=== PATIENT | female | born 1960 | race Caucasian/White ===

== ENCOUNTER 2017-02-26 17:10 | Inpatient (IN) | payer BC, OTHER ==
[~2017-02-26] VITALS: Ht 160 cm; Wt 102.4 kg
[~2017-02-26 17:10] MED LIST: CIPR-255 PO
[2017-02-26] MEDS ORDERED: MoRPHine SULFATE 4 MG/ML 1 ML CARP\\VIAL IV STA (17:33)
[2017-02-26] MEDS ORDERED: ONDANSETRON INJ 2 MG/ML 2 ML VIAL IV STA (17:33)
[2017-02-26] MEDS ORDERED: SODIUM CHLORIDE 0.9% 1000ML 1,000 ML IV SCH (17:33)
[2017-02-26] MEDS ORDERED: ASPI325T39 PO (17:36)
--- NOTE | 2017-02-26 17:40 | EMERGENCY ROOM VISIT NOTE ---
History First contact with patient: 17:19 Chief Complaint: CARDIAC ASSESSMENT Stated Complaint: EYE PROBLEMS, CHEST PAIN Nursing Triage Summary: last monday patient was stressed and c/o blurry vision and thoughts were not making sense. patient states symptoms have not resolved. patient states last night around 2129 pt c/o chest pain"tight" that radiates to back. pain resolved but then this AM c/o chest pain. patient took 1 pill of Grace aspirin 1 hr ago and symptoms have subsided slightly. chest pain 4/10 at this time. pt denies SOB. pt continues to have blurry vision and feels like she "cannot get her thoughts together." History of Present Illness The patient is a 56 year old female who presents to the Emergency Room via private vehicle accompanied by family with complaints of "eye problems, chest pain". The patient states that 2 weeks ago, she began with increased thirst and urination. She states that she thought she had a UTI, and the niece infection therefore began treating this by herself. She states that last Monday , week ago she lost vision in both eyes, noting that it was blurred like. This has persisted. She now needs to wear glasses for things that she used to be able to visually see without glasses. She states that last night she began with substernal chest pain, and breathing very fast. She points to the middle of her chest as a location of pain that she rates as a 4/10. The chest pain is dull in nature. She also took aspirin 1 hour prior to arrival. She denies any medical problems. She feels as though she has trouble concentrating, and has to search for words. Review of Systems A complete 10-point Review of Systems was discussed with the patient, with pertinent positives and negatives listed in the History of Present Illness. All remaining Review of Systems questions can be considered negative unless otherwise specified. Past Medical/Surgical History Medical Problems: (1) Kidney stones Family History Heart disease Kidney disease Social History Smoking Status: Never Smoker Marital Status: Housing Status: lives with family Current/Historical Medications Scheduled Aspirin (Aspirin Ec), 325 MG PO UD Physical Exam Vital Signs Date Time Temp Pulse Resp B/P (MAP) Pulse Ox O2 Delivery O2 Flow Rate FiO2 02/26/17 20:26 74 18 174/101 96 Room Air 02/26/17 18:43 73 16 161/83 95 Room Air 02/26/17 18:23 81 16 169/88 94 Room Air 02/26/17 18:22 94 Room Air 02/26/17 17:58 82 02/26/17 17:18 97 Room Air 02/26/17 17:13 36.7 93 20 171/83 94 Room Air Physical Exam VITAL SIGNS - Vital signs and nursing notes were reviewed. Patient is afebrile , hypertensive at 171/83, nontoxic tachycardic and is saturating on room air 94% . GENERAL -56-year-old female appearing her stated age who is in no acute distress. Communicates well with provider and answers questions appropriately. SKIN - Without rashes. No petechial rash. HEAD - NC/AT. EYES - PERRL with EOMI bilaterally. Sclera anicteric. Palpebral conjunctiva pink and moist with no injection noted. Funduscopic exam reveals no abnormality. EARS - No deformities of external structures noted on gross examination bilaterally. NOSE - Midline and without cyanosis. No epistaxis or purulent drainage noted. Septum midline without deviation or septal hematoma noted. MOUTH/OROPHARYNX - Without perioral cyanosis. Buccal mucosa pink and moist and without leukoplakia. Tongue midline with equal elevation of palate bilaterally. No tonsillar hypertrophy, erythema, or exudates noted. Fair dentition noted. NECK - Neck with FROM. Supple to palpation. No lymphadenopathy noted. No nuchal rigidity. LUNGS - Chest wall symmetric without accessory muscle use, intercostals retractions, or central cyanosis. Normal vesicular breath sounds CTA B/L. No wheezes, rales, or rhonchi appreciated. CARDIAC - RRR with S1/S2. No murmur, rubs, or gallops appreciated. ABDOMEN - Abdominal contour without pulsations or visible masses. BS normoactive all four quadrants. No tenderness, palpable masses, hepatosplenomegaly, or ascites noted. EXTREMITIES - No clubbing or peripheral cyanosis. No pretibial edema present. +5 /5 strength noted in UE/LE bilaterally. NEUROLOGIC - Cranial nerves II through XII grossly intact. Patellar reflexes +2/ 4. PSYCH - A&Ox3 and cooperates fully with examiner. Pt is very pleasant and interacts well with examiner. Medical Decision & Procedures ER Provider Diagnostic Interpretation: CHEST ONE VIEW PORTABLE CLINICAL HISTORY: Chest pain dyspnea COMPARISON STUDY: 05/23/2015 FINDINGS: The bones soft tissues and hemidiaphragms are normal. The cardiomediastinal silhouette is normal. The lungs are clear. The pulmonary vasculature is normal. IMPRESSION: Negative chest. The above report was generated using voice recognition software. It may contain grammatical, syntax or spelling errors. Electronically signed by: Cory Ramsey M.D. 02/26/2017 6:05 PM Dictated Date/Time: 02/26/2017 6:05 PM Laboratory Results 02/26/17 17:55 Red Blood Count 5.44, Mean Corpuscular Volume 82.2, Mean Corpuscular Hemoglobin 28.5, Mean Corpuscular Hemoglobin Concent 34.7, Mean Platelet Volume 10.0, Neutrophils (%) (Auto) 64.4, Lymphocytes (%) (Auto) 23.9, Monocytes (%) (Auto) 9.2, Eosinophils (%) (Auto) 1.9, Basophils (%) (Auto) 0.4, Neutrophils # (Auto) 3.65, Lymphocytes # (Auto) 1.35, Monocytes # (Auto) 0.52, Eosinophils # (Auto) 0.11, Basophils # (Auto) 0.02 02/26/17 17:55 Test 02/26/17 17:24 02/26/17 17:45 02/26/17 17:55 02/26/17 18:06 Bedside Glucose 386 mg/dl (70-90) Bedside Prothrombin Time INR 1.0 (0.9-1.1) White Blood Count 5.66 K/uL (4.8-10.8) Red Blood Count 5.44 M/uL (4.2-5.4) Hemoglobin 15.5 g/dL (12.0-16.0) Hematocrit 44.7 % (37-47) Mean Corpuscular Volume 82.2 fL (80-100) Mean Corpuscular Hemoglobin 28.5 pg (25-34) Mean Corpuscular Hemoglobin Concent 34.7 g/dl (32-36) Platelet Count 215 K/uL (130-400) Mean Platelet Volume 10.0 fL (7.4-10.4) Neutrophils (%) (Auto) 64.4 % Lymphocytes (%) (Auto) 23.9 % Monocytes (%) (Auto) 9.2 % Eosinophils (%) (Auto) 1.9 % Basophils (%) (Auto) 0.4 % Neutrophils # (Auto) 3.65 K/uL (1.4-6.5) Lymphocytes # (Auto) 1.35 K/uL (1.2-3.4) Monocytes # (Auto) 0.52 K/uL (0.11-0.59) Eosinophils # (Auto) 0.11 K/uL (0-0.5) Basophils # (Auto) 0.02 K/uL (0-0.2) RDW Standard Deviation 40.6 fL (36.4-46.3) RDW Coefficient of Variation 13.6 % (11.5-14.5) Immature Granulocyte % (Auto) 0.2 % Immature Granulocyte # (Auto) 0.01 K/uL (0.00-0.02) Prothrombin Time 10.3 SECONDS (9.0-12.0) Prothromb Time International Ratio 1.0 (0.9-1.1) Activated Partial Thromboplast Time 27.2 SECONDS (21.0-31.0) Partial Thromboplastin Ratio 1.0 Anion Gap 14.0 mmol/L (3-11) Est Creatinine Clear Calc Drug Dose 73.1 ml/min Estimated GFR () 75.1 Estimated GFR (Non- 64.8 BUN/Creatinine Ratio 17.9 (10-20) Calcium Level 8.8 mg/dl (8.5-10.1) Total Creatine Kinase 55 U/L (26-192) Creatine Kinase MB < 0.5 ng/ml (0.5-3.6) Creatine Kinase MB Ratio (0-3.0) Beta-Hydroxybutyric Acid 12.99 mg/dL (0.2-2.81) Bedside Troponin I < 0.030 ng/ml (0-0.045) Test 02/26/17 19:03 Urine Color YELLOW Urine Appearance CLEAR (CLEAR) Urine pH 5.0 (4.5-7.5) Urine Specific [place] 1.045 (1.000-1.030) Urine Protein NEG (NEG) Urine Glucose (UA) 3+ (NEG) Urine Ketones 3+ (NEG) Urine Occult Blood NEG (NEG) Urine Nitrite NEG (NEG) Urine Bilirubin NEG (NEG) Urine Urobilinogen NEG (NEG) Urine Leukocyte Esterase TRACE (NEG) Urine WBC (Auto) >30 /hpf (0-5) Urine RBC (Auto) 0-4 /hpf (0-4) Urine Hyaline Casts (Auto) 1-5 /lpf (0-5) Urine Epithelial Cells (Auto) 20-30 /lpf (0-5) Urine Bacteria (Auto) 1+ (NEG) Urine Yeast (Auto) PRESENT (NONE PRSENT) Medications Administered Medications (Trade) Dose Ordered Sig/Shakira Route Start Time Stop Time Status Last Admin Dose Admin Sodium Chloride 1,000 ml @ 50 mls/hr Q20H IV 02/26/17 17:33 03/28/17 17:32 02/26/17 18:11 50 MLS/HR Morphine Sulfate (MoRPHine SULFATE INJ) 4 mg NOW STAT IV 02/26/17 17:33 02/26/17 17:36 DC 02/26/17 18:10 4 MG Ondansetron HCl (Zofran Inj) 4 mg NOW STAT IV 02/26/17 17:33 02/26/17 17:36 DC 02/26/17 18:10 4 MG Medical Decision Patient was seen and evaluated as above. She presents to us today with eye problems, chest pain and polydipsia a, polyuria and concern over a yeast infection. Upon entrance, her EKG reveals normal sinus rhythm, rate of 85 bpm. There is a nonspecific T-wave abnormality, and a prolonged QT. This was compared to EKG of 05/23/2015 and no significant change was found. CBC reveals no leukocytosis. Her blood cell count slightly high at 5.44. Coag studies unremarkable. CMP reveals anion gap 14, point care glucose high at 386, beta hydroxy which are elevated at 12.99. Troponin negative. Urine is positive for ketones, leukocyte esterase, white blood cells, 2030 epithelial cells, and 1+ urinary bacteria. Urine cultures pending. Yeast is also present. Chest x-ray normal. CT of the head is unremarkable. Because the patient's symptoms of chest pain, new onset hyperglycemia, and vision change and do believe that inpatient management is warranted. The case was discussed with my attending. Patient will be made for further evaluation and management. The patient's vision change has been greater than one week, therefore TPA is contraindicated. In evaluation treatment this patient following differential diagnoses entertained: Hyperglycemia, diabetes, TIA, CVA, PE, among others. Impression Primary Impression: Chest pain Additional Impressions: Hyperglycemia Prolonged Q-T interval on ECG Polydipsia Polyuria Departure Information Condition FAIR Referrals No Doctor, Assigned (PCP) Patient Instructions My [facility] Problem Qualifiers
--- NOTE | 2017-02-26 18:06 | DIAGNOSTIC IMAGING REPORT ---
CHEST ONE VIEW PORTABLE CLINICAL HISTORY: Chest pain dyspnea COMPARISON STUDY: 05/23/2015 FINDINGS: The bones soft tissues and hemidiaphragms are normal. The cardiomediastinal silhouette is normal. The lungs are clear. The pulmonary vasculature is normal. IMPRESSION: Negative chest. The above report was generated using voice recognition software. It may contain grammatical, syntax or spelling errors. Electronically signed by: Cory Ramsey M.D. 02/26/2017 6:05 PM Dictated Date/Time: 02/26/2017 6:05 PM
[2017-02-26 18:10] LABS: BASO % 0.4 %; BASO ABS # 0.02 K/uL (0-0.2); COMPLETE YES; EOS % 1.9 %; HEMATOCRIT 44.7 % (37-47); IG% 0.2 %; LYMPH % 23.9 %; LYMPH ABS # 1.35 K/uL (1.2-3.4); MEAN CELL VOLUME 82.2 fL (80-100); MEAN CORPUSCULAR HEMOGLOBIN 28.5 pg (25-34); MEAN CORPUSCULAR HGB CONC 34.7 g/dl (32-36); MONO % 9.2 %; NEUT % 64.4 %; PLATELET COUNT 215 K/uL (130-400); RED BLOOD COUNT 5.44 M/uL (4.2-5.4); WHITE BLOOD COUNT 5.66 K/uL (4.8-10.8)
[2017-02-26 18:24] LABS: PROTHROMBIN TIME (PATIENT) 10.3 SECONDS (9.0-12.0)
--- NOTE | 2017-02-26 18:41 | DIAGNOSTIC IMAGING REPORT ---
HEAD WITHOUT CONTRAST (CT) CT DOSE: 537.48 mGy.cm HISTORY: Mental status change Stroke TECHNIQUE: Multiaxial CT images of the head were performed without the use of intravenous contrast. A dose lowering technique was utilized adhering to the principles of ALARA. Comparison: None. Findings: The paranasal sinuses and mastoid air cells are clear. The calvarium and skull base are intact. The ventricles and sulci are within normal limits. There is no mass, hematoma, midline shift, or acute infarct. Impression: No acute intracranial abnormality. The above report was generated using voice recognition software. It may contain grammatical, syntax or spelling errors. Electronically signed by: Cory Ramsey M.D. 02/26/2017 6:39 PM Dictated Date/Time: 02/26/2017 6:39 PM
[2017-02-26 18:48] LABS: BETA-HYDROXYBUTYRATE 12.99 mg/dL (0.2-2.81); BLOOD UREA NITROGEN 17 mg/dl (7-18); BUN/CREATININE RATIO 17.9 (10-20); CALCIUM 8.8 mg/dl (8.5-10.1); CARBON DIOXIDE 24 mmol/L (21-32); CHLORIDE 98 mmol/L (98-107); CREATININE 0.97 mg/dl (0.60-1.20); GLUCOSE 383 mg/dl (70-99)
[2017-02-26 19:26] LABS: SODIUM 136 mmol/L (136-145)
[2017-02-26 19:40] LABS: URINE APPEARANCE CLEAR (CLEAR); URINE BILIRUBIN NEG (NEG); URINE COLOR YELLOW; URINE EPITHELIAL CELL AUTO 20-30 /lpf (0-5); URINE NITRITE NEG (NEG); URINE SPECIFIC GRAVITY 1.045 (1.000-1.030); UROBILINOGEN NEG (NEG)
[2017-02-26 19:52] LABS: MANUAL MICROSCOPIC REQUIRED? NO; REVIEW REQ? YES
[2017-02-26 19:57] LABS: ZZUR CULT IF INDIC CLEAN CATCH YES
[2017-02-26] MEDS ORDERED: SODIUM CHLORIDE 0.45% 1000ML 1,000 ML IV SCH (20:38)
[2017-02-26] MEDS ORDERED: INSULIN IV INFUSION PROTOCOL STA (20:38)
[2017-02-26] MEDS ORDERED: ZOLPIDEM TARTRATE 5 MG TAB PO PRN (20:45)
[2017-02-26] MEDS ORDERED: ACETAMINOPHEN 325 MG TAB PO PRN (20:45)
[2017-02-26] MEDS ORDERED: ONDANSETRON INJ 2 MG/ML 2 ML VIAL IV PRN (20:45)
[2017-02-26] MEDS ORDERED: ALUMINUM/MAGNESIUM/SIMETH (MAALOX MAX) 30 ML UDC PO PRN (20:45)
[2017-02-26] MEDS ORDERED: PENDING NSS+20mEq KCL IVF SCH (20:45)
[2017-02-26] MEDS ORDERED: MAGNESIUM HYDROXIDE SUSP 30 ML UDC PO PRN (20:45)
[2017-02-26] MEDS ORDERED: PENDING D5 1/2NS+20mEq KCL IVF SCH (20:45)
[2017-02-26] MEDS ORDERED: POLYETHYLENE (MIRALAX) 17 GM PACK PO PRN (20:45)
[2017-02-26] MEDS ORDERED: DKA GOAL RANGE 150-250 mg/dl 1 EA ONE (20:45)
[2017-02-26] MEDS ORDERED: LISINOPRIL 5 MG TAB PO ONE (21:00)
[2017-02-26] MEDS ORDERED: FLUCONAZOLE 50 MG TAB PO ONE (21:00)
[2017-02-26] MEDS ORDERED: FLUCONAZOLE 50 MG TAB ONE ×2 (21:05→21:06)
[2017-02-26] MEDS ORDERED: LISINOPRIL 5 MG TAB ONE (21:05)
[2017-02-26] MEDS ORDERED: LANTUS PER UNIT CHARGE SQ STA (21:08)
--- NOTE | 2017-02-26 21:09 | History and Physical ---
History & Physical Date & Time of Service: Feb 26, 2017 at 21:09 Chief Complaint: Eye Problems, Chest Pain Primary Care Physician: No Doctor, Assigned History of Present Illness Source: patient, family Mrs Hernandez is a 56 yo F who reports 2 weeks of urinary frequency and unsatiable thirst. She reports a week ago she also noticed visual changes, where her vision became very blurry. She became concerned about it and was getting very worked up. She does not have a PCP and hasn't been a doctor in years. Yesterday she developed some central chest pain as well, which was associated with shortness of breath, was sharp, severe, and got better on its own. She decided to come in today to evaluate her visual changes. She denies exercising regularly and reports she takes no medications at home, as well as eats an unhealthy diet. Past Medical/Surgical History Medical Problems: (1) Kidney stones Status: Chronic Family History Heart disease Kidney disease Father of renal cell Ca. Mother has heart disease. Sister is diabetic. Social History Smoking Status: Never Smoker Smokeless Tobacco Use: No Alcohol Use: none Drug Use: none Marital Status: Housing status: lives with family Occupational Status: employed Immunizations History of Influenza Vaccine: Unknown History of Tetanus Vaccine?: Yes History of Pneumococcal: No History of Hepatitis B Vaccine: Unknown Multi-Drug Resistant Organisms History of MDRO: No Allergies Coded Allergies: No Known Allergies (Verified , 02/26/17) Home Medications Scheduled Aspirin (Aspirin Ec), 325 MG PO UD Review of Systems See HPI for pertinent positives & negatives. A total of 10 systems reviewed and were otherwise negative. Physical Exam Vital Signs Date Time Temp Pulse Resp B/P (MAP) Pulse Ox O2 Delivery O2 Flow Rate FiO2 02/26/17 20:26 74 18 174/101 96 Room Air 02/26/17 18:43 73 16 161/83 95 Room Air 02/26/17 18:23 81 16 169/88 94 Room Air 02/26/17 18:22 94 Room Air 02/26/17 17:58 82 02/26/17 17:18 97 Room Air 02/26/17 17:13 36.7 93 20 171/83 94 Room Air General Appearance: WD/WN, no apparent distress, + obese Head: normocephalic, atraumatic Eyes: normal inspection, PERRL ENT: hearing grossly normal Neck: supple, no JVD Respiratory/Chest: lungs clear, normal breath sounds, no respiratory distress Cardiovascular: regular rate, rhythm, no murmur, normal peripheral pulses Abdomen/GI: normal bowel sounds, non tender, soft Back: normal inspection, no muscle spasm Extremities/Musculoskelatal: no calf tenderness, no pedal edema Neurologic/Psych: alert, normal mood/affect, oriented x 3 Skin: no rash Diagnostics Laboratory Results Results Past 24 Hours Test 02/26/17 17:24 02/26/17 17:45 02/26/17 17:55 02/26/17 18:06 Range/Units Bedside Glucose 386 70-90 mg/dl Bedside Prothrombin Time INR 1.0 0.9-1.1 White Blood Count 5.66 4.8-10.8 K/uL Red Blood Count 5.44 4.2-5.4 M/uL Hemoglobin 15.5 12.0-16.0 g/dL Hematocrit 44.7 37-47 % Mean Corpuscular Volume 82.2 80-100 fL Mean Corpuscular Hemoglobin 28.5 25-34 pg Mean Corpuscular Hemoglobin Concent 34.7 32-36 g/dl Platelet Count 215 130-400 K/uL Mean Platelet Volume 10.0 7.4-10.4 fL Neutrophils (%) (Auto) 64.4 % Lymphocytes (%) (Auto) 23.9 % Monocytes (%) (Auto) 9.2 % Eosinophils (%) (Auto) 1.9 % Basophils (%) (Auto) 0.4 % Neutrophils # (Auto) 3.65 1.4-6.5 K/uL Lymphocytes # (Auto) 1.35 1.2-3.4 K/uL Monocytes # (Auto) 0.52 0.11-0.59 K/uL Eosinophils # (Auto) 0.11 0-0.5 K/uL Basophils # (Auto) 0.02 0-0.2 K/uL RDW Standard Deviation 40.6 36.4-46.3 fL RDW Coefficient of Variation 13.6 11.5-14.5 % Immature Granulocyte % (Auto) 0.2 % Immature Granulocyte # (Auto) 0.01 0.00-0.02 K/uL Prothrombin Time 10.3 9.0-12.0 SECONDS Prothromb Time International Ratio 1.0 0.9-1.1 Activated Partial Thromboplast Time 27.2 21.0-31.0 SECONDS Partial Thromboplastin Ratio 1.0 Sodium Level 136 136-145 mmol/L Potassium Level 4.0 3.5-5.1 mmol/L Chloride Level 98 98-107 mmol/L Carbon Dioxide Level 24 21-32 mmol/L Anion Gap 14.0 3-11 mmol/L Blood Urea Nitrogen 17 7-18 mg/dl Creatinine 0.97 0.60-1.20 mg/dl Est Creatinine Clear Calc Drug Dose 73.1 ml/min Estimated GFR () 75.1 Estimated GFR (Non- 64.8 BUN/Creatinine Ratio 17.9 10-20 Random Glucose 383 70-99 mg/dl Calcium Level 8.8 8.5-10.1 mg/dl Total Creatine Kinase 55 26-192 U/L Creatine Kinase MB < 0.5 0.5-3.6 ng/ml Creatine Kinase MB Ratio 0-3.0 Beta-Hydroxybutyric Acid 12.99 0.2-2.81 mg/dL Bedside Troponin I < 0.030 0-0.045 ng/ml Test 02/26/17 19:03 02/26/17 20:58 Range/Units Urine Color YELLOW Urine Appearance CLEAR CLEAR Urine pH 5.0 4.5-7.5 Urine Specific [place] 1.045 1.000-1.030 Urine Protein NEG NEG Urine Glucose (UA) 3+ NEG Urine Ketones 3+ NEG Urine Occult Blood NEG NEG Urine Nitrite NEG NEG Urine Bilirubin NEG NEG Urine Urobilinogen NEG NEG Urine Leukocyte Esterase TRACE NEG Urine WBC (Auto) >30 0-5 /hpf Urine RBC (Auto) 0-4 0-4 /hpf Urine Hyaline Casts (Auto) 1-5 0-5 /lpf Urine Epithelial Cells (Auto) 20-30 0-5 /lpf Urine Bacteria (Auto) 1+ NEG Urine Yeast (Auto) PRESENT NONE PRSENT Bedside Glucose 275 70-90 mg/dl Microbiology Results 02/26/17 Urine Culture, Received Pending Diagnostic Radiology CT Head: Impression: No acute intracranial abnormality. CXR: IMPRESSION: Negative chest. EKG NSR, 85bpm, no ST elevations QTc 490 T wave inversion in leads V4, V5, V6 compared to EKG in 2015 - T wave changes were similar Impression Assessment and Plan 56yo F with newly diagnosed diabetes, who presents with hyperglycemia likely contributing to visual changes and anxiety causing intermittent chest pain ( though will rule out ACS). Hyperglycemia with ketosis, with new dx of T2DM, likely w/component of dehydration as well (Glc decreased from 383 to 270 after 1L fluid) - Fluid rehydration: received 1L in ED so far, will continue maintenance at 150mL/hour - HbA1c pending at this time - Will likely start Metformin tomorrow, will await to ensure no further testing until then - BSG AC and HS - Tolerating PO intake, will start on diabetic diet, and add Lantus w/Novolog coverage Visual changes - Likely just refractive changes, as pt improved w/pinhole test - Continue to monitor Chest pain - Initial trop negative, will trend in 8 hours x 2 - Echo in AM - EKG in AM Vaginal candidiasis - Fluconazole 150mg now, no further doses Elevated BP - Started on Lisinopril, will continue to monitor DISPO: Tele CODE STATUS: Full VTE: Mattx Attending Addendum: I have physically seen and examined this patient, have supervised the medical residents activities, and agree with the H&P as noted above with the following exceptions: NONE The patient is awake, well-developed and adequately nourished, alert and oriented 3, normocephalic and atraumatic, lying in bed and in no acute distress. HEENT--PERRL, EOMI, mucous membranes and oropharynx normal. Neck--supple, no JVD or bruits, thyroid normal, trachea midline, no adenopathy. Heart--normal S1 and S2, no extra beats, no murmurs, rubs or gallops. Lungs--clear bilaterally with good air movement, no respiratory distress, no accessory muscle use. Abdomen--normal bowel sounds and soft, nontender and nondistended, and obese. Extremities--no cyanosis, clubbing or edema. There are good distal pulses b/l. Dermatologic--normal skin turgor, normal color, warm and dry, no abnormal lymph nodes, no rash. Neurologic--cranial nerves II through XII grossly intact, motor and sensory examination normal. Rheumatologic--normal range of motion, nontender, muscles and joints. Psychiatric--normal affect. Assessment and Plan: 1. Precordial chest pain--The patient will be admitted to telemetry for serial cardiac enzymes, cardiac rhythm monitoring and a 2-D echocardiogram with Dopplers. Continue current dosing of home aspirin 325 mg by mouth daily. Start low-dose lisinopril. 2. Hyperglycemia with new diagnosis of diabetes mellitus--blood sugar upon admission was 383, and improved to 270 after 1 L of IV fluids. Order a hemoglobin A1c and microalbumin level. Start metformin 500 mg by mouth daily in the a.m. tomorrow. Diabetic education and nutrition counseling.. Place on Accu-Cheks before meals and at bedtime with NovoLog coverage per scale. 3 blurry vision--normal ophthalmoscopic examination with sharp foveal reflex and normal optic nerve anatomy. Likely secondary to elevated blood sugar and osmotic swelling of the lens inside the eyes. She was told that this is likely a temporary vision change, and should improve slowly as her glucose comes under better control. Level of Care Med/Surg Advanced Directives Existing Advance Directive: No Existing Living Will: No Existing Power of Toe Trimmer: No Resuscitation Status FULL RESUSCITATION VTE Prophylaxis VTE Risk Assessment Done? Y/N: Yes Risk Level: Moderate Given or contraindicated: SCD's Social Service Consult None Apply Resident Tracking Resident Involvement: Resident Care Provided Care Provided: Adult Hospital Medicine
[2017-02-26 21:54] LABS: MAGNESIUM 2.1 mg/dl (1.8-2.4); PHOSPHORUS 2.8 mg/dl (2.5-4.9)
[2017-02-26] MEDS ORDERED: ENOXAPARIN 40 MG/0.4 ML SYR SQ SCH (22:00)
[2017-02-26 22:10] VITALS: BP 147/89; PULSE 70; TEMP 36.4; O2SAT 96; BMI 40.0
[2017-02-26 22:12] VITALS: BP 147/89; PULSE 70; TEMP 36.4; O2SAT 96
[2017-02-26 22:23] VITALS: BP 147/89; PULSE 70; TEMP 36.4; O2SAT 96
[2017-02-26] MEDS: SODIUM CHLOR 0.45% + 20MEQ KCL 1,000 ML IV SCH (22:53)
[2017-02-26] MEDS: INSULIN ASPART 100 UNITS/ML 3 ML PEN SC SCH (23:25)
[2017-02-27] VITALS: O2SAT 96
[2017-02-27] MEDS: SODIUM CHLOR 0.45% + 20MEQ KCL 1,000 ML IV SCH ×2 (04:59→11:34)
[2017-02-27 06:42] LABS: ESTIMATED AVERAGE GLUCOSE 275 mg/dl; HA1C FLAG Normal (Normal)
[2017-02-27 07:22] VITALS: BP 138/84; PULSE 68; TEMP 36.5; O2SAT 97
[2017-02-27 08:49] LABS: ALB/GLOB RATIO 0.9 (0.9-2); ALKALINE PHOSPHATASE 141 U/L (45-117); AST/SGOT 42 U/L (15-37); BUN/CREATININE RATIO 14.6 (10-20); CALCIUM 8.1 mg/dl (8.5-10.1); CARBON DIOXIDE 21 mmol/L (21-32); CHLORIDE 104 mmol/L (98-107); CHOLESTEROL 242 mg/dl (0-200); CREATININE 0.67 mg/dl (0.60-1.20); GLUCOSE 315 mg/dl (70-99); HDL CHOLESTEROL 27 mg/dl; SODIUM 134 mmol/L (136-145); TRIGLYCERIDES 1731 mg/dl (0-150)
[2017-02-27] MEDS ORDERED: LISINOPRIL 5 MG TAB PO SCH (09:00)
[2017-02-27] MEDS ORDERED: ASPIRIN 81 MG ECTAB PO SCH (09:00)
[2017-02-27 09:01] LABS: BETA-HYDROXYBUTYRATE 14.62 mg/dL (0.2-2.81)
[2017-02-27 09:12] LABS: ALT/SGPT 51 U/L (12-78)
[2017-02-27 09:15] LABS: BLOOD UREA NITROGEN 10 mg/dl (7-18)
[2017-02-27] MEDS: INSULIN ASPART 100 UNITS/ML 3 ML PEN SC SCH ×3 (09:42→17:05)
--- NOTE | 2017-02-27 09:51 | Family Medicine Progress Note ---
Progress Note Date of Service Feb 27, 2017.
[2017-02-27 12:55] VITALS: Ht 160 cm; Wt 102.4 kg
[2017-02-27 15:35] VITALS: BP 148/86; PULSE 80; TEMP 36.7; O2SAT 94
[2017-02-27] MEDS ORDERED: APDI SQ (15:41)
[2017-02-27] MEDS ORDERED: INSDGIPEN SC (15:41)
[2017-02-27] MEDS ORDERED: METF500T5 PO (15:41)
--- NOTE | 2017-02-27 15:56 | Discharge Instructions ---
Discharge Instructions Date of Service Feb 27, 2017. Admission Reason for Admission: Dka Type 2, Newly Diagnosed With Diabetes, Visual Discharge Discharge Diagnosis / Problem: Diabetes Mellitus, new diagnosis Discharge Goals Goal(s): Improve disease control, Improve nutritional status, Learn about illness, Diagnostic testing, Therapeutic intervention, Prevent Disease Progression Activity Recommendations Activity Limitations: resume your previous activity Lifting Limitations: gradually increase as tolerated Exercise/Sports Limitations: none May Resume Sexual Activity: when tolerated Shower/Bathe: no limitations Driving or Machine Use: no limitations . Instructions / Follow-Up Instructions / Follow-Up You were admitted for chest pain, and frequent urinating and insatiable thirst. We found based on your blood tests that you have high blood sugar and have for some time now which is consistent with a diagnosis of Diabetes Mellitus, for which we are now beginning treatment. It is important that you: - take your medications as directed. - increase your daily physical activity to at least 30 min/day - eat a balanced diet of vegetables and low carb, low starch foods. Regarding your chest pain, we checked your troponin values, and they were normal , which is reassuring that you have not had a heart attack. Your lipase was elevated, which suggests that your pain may have resulted from pancreatic inflammation. Your family doctor will repeat your lipase. In the meantime, try eating a lower residue diet such as bananas, applesauce, toast, rice. Please also ensure that you drink plenty of fluids. You will see Dr. Forrest in the clinic this Monday afternoon. Current Hospital Diet Patient's current hospital diet: AHA Diet (Heart Healthy), Diabetes Type 2 Diet Discharge Diet Recommended Diet: Diabetes Type 2 Diet Fluid Restriction: None Pending Studies Studies pending at discharge: no Laboratory Results Hemoglobin A1c Test 02/26/17 17:55 Range/Units Estimated Average Glucose 275 mg/dl Hemoglobin A1c 11.2 H 4.5-5.6 % Lipid Panel Test 02/27/17 07:33 Range/Units Triglycerides Level 1731 H 0-150 mg/dl Cholesterol Level 242 H 0-200 mg/dl HDL Cholesterol 27 mg/dl Cholesterol/HDL Ratio 9.0 LDL Cholesterol, Calculated mg/dl Medical Emergencies . Who to Call and When: Medical Emergencies: If at any time you feel your situation is an emergency, please call 911 immediately. . Non-Emergent Contact Non-Emergency issues call your: Primary Care Provider Call Non-Emergent contact if: you have a fever, your pain is concerning you . . "Provider Documentation" section prepared by Joanne Forrest. . VTE Core Measure Inpt VTE Proph given/why not?: SCD's
[2017-02-27 16:17] VITALS: BP 148/86; PULSE 80; TEMP 36.7; O2SAT 94
[2017-02-27] MEDS ORDERED: INSULIN GLARGINE SOLOSTAR 100 UNITS/ML 3 ML PEN SC ONE (16:30)
--- NOTE | 2017-02-27 16:41 | ECHOCARDIOGRAM REPORT ---
*NOTICE TO RECEIVING REPUBLICAN AGENCY This information is strictly Confidential and protected under [place] law. [place] law prohibits you from making any further disclosure of this information unless further disclosure is expressly permitted by the written consent of the person to whom it pertains or is authorized by law. A general authorization for the release of medical or other information is not sufficient for this purpose. Hospital accepts no responsibility if the information is made available to any other person, INCLUDING THE PATIENT. Interpretation Summary * Name: JAZZY LOYOLA Study Date: 02/27/2017 07:44 AM BP: 147/89 mmHg * Patient Location: .[id number]\W256\S\2 HR: 70 * : 1960 (M/d/yyyy) Gender: Female Height: 63 in * Age: 56 yrs Ethnicity: CA Weight: 225 lb * Ordering Physician: Olive Saravia * Performed By: Reena Samaniego * * Reason For Study: CHEST PAIN * BSA: 2.0 m2 * Normal biventricular systolic function. * Normal chamber dimensions. * No significant valvular abnormalities. * The study was technically difficult. Procedure Details * A complete two-dimensional transthoracic echocardiogram was performed (2D, M-mode, Doppler and color flow Doppler). * The study was technically difficult. * There were technical limitations due to patient'sbody habitus * A contrast injection of Definity was performed to improve assessment of LV function. * Contrast was injected into an intravenous site in the left arm. * One vial of Definity ultrasound contrast was diluted in normal saline to a total volume of 10 ml. A total of '3' ml of solution was administered during imaging. * Lot # [id number] of Definity utilized for procedure. * Expiration date 03/17. * The attending nurse who injected the contrast agent was MERCEDES DURAN RN. Left Ventricle * The left ventricle is normal in size. * There is normal left ventricular wall thickness. * Ejection Fraction = 55-60%. * Left ventricular systolic function is normal. * The left ventricular wall motion is normal. Right Ventricle * The right ventricle is normal in size and function. Atria * The left atrial size is normal. * Right atrial size is normal. Mitral Valve * The mitral valve is normal. * There is no mitral valve stenosis. * There is trace mitral regurgitation. Tricuspid Valve * The tricuspid valve is not well visualized, but is grossly normal. * There is no tricuspid stenosis. * Significant tricuspid regurgitation is absent. Aortic Valve * The aortic valve is not well visualized. * Aortic stenosis is absent. * No aortic regurgitation is present. Pulmonic Valve * The pulmonic valve is not well visualized. * The pulmonary valve is inadequately visualized, but the Doppler data is adequate for interpretation. * There is no pulmonic valvular stenosis. * There is no pulmonic valvular regurgitation. Great Vessels * The aortic root is normal size. Pericardium/Pleural * There is no pericardial effusion. MMode 2D Measurements and Calculations IVSd 1.0 cm IVSs 1.5 cm LVIDd 4.8 cm LVIDs 3.2 cm LVPWd 1.1 cm LVPWs 1.8 cm IVS/LVPW 0.99 FS 33.1 % EDV(Teich) 107.6 ml ESV(Teich) 41.3 ml EF(Teich) 61.6 % EDV(cubed) 110.7 ml ESV(cubed) 33.1 ml EF(cubed) 70.1 % % IVS thick 49.0 % % LVPW thick 68.4 % LV mass(C)d 180.3 grams LV mass(C)dI 88.7 grams/m\S\2 LV mass(C)s 204.0 grams LV mass(C)sI 100.3 grams/m\S\2 CO(Teich) 5.1 l/min CI(Teich) 2.5 l/min/m\S\2 SV(Teich) 66.3 ml SI(Teich) 32.6 ml/m\S\2 CO(cubed) 6.0 l/min CI(cubed) 2.9 l/min/m\S\2 SV(cubed) 77.6 ml SI(cubed) 38.2 ml/m\S\2 Ao root diam 2.8 cm Ao root area 6.2 cm\S\2 ACS 0.97 cm LA dimension 2.9 cm asc Aorta Diam 2.5 cm LA/Ao 1.0 LVOT diam 1.9 cm LVOT area 2.9 cm\S\2 LVAd ap4 19.2 cm\S\2 LVLd ap4 6.8 cm EDV(MOD-sp4) 44.5 ml LVAs ap4 11.5 cm\S\2 LVLs ap4 5.8 cm ESV(MOD-sp4) 19.8 ml EF(MOD-sp4) 55.5 % LVAd ap2 28.1 cm\S\2 LVLd ap2 8.0 cm EDV(MOD-sp2) 82.9 ml LVAs ap2 15.4 cm\S\2 LVLs ap2 6.3 cm ESV(MOD-sp2) 31.6 ml EF(MOD-sp2) 61.9 % CO(MOD-sp4) 1.9 l/min CI(MOD-sp4) 0.94 l/min/m\S\2 SV(MOD-sp4) 24.7 ml SI(MOD-sp4) 12.1 ml/m\S\2 CO(MOD-sp2) 4.0 l/min CI(MOD-sp2) 1.9 l/min/m\S\2 SV(MOD-sp2) 51.3 ml SI(MOD-sp2) 25.2 ml/m\S\2 Doppler Measurements and Calculations MV E max zachariah 92.6 cm/sec MV A max zachariah 91.2 cm/sec MV E/A 1.0 MV dec time 0.25 sec Ao V2 max 153.1 cm/sec Ao max PG 9.4 mmHg Ao max PG (full) 4.7 mmHg CHANDANA(V,A) 2.0 cm\S\2 CHANDANA(V,D) 2.0 cm\S\2 LV V1 max PG 4.6 mmHg LV V1 max 107.7 cm/sec PA V2 max 68.9 cm/sec PA max PG 1.9 mmHg
--- NOTE | 2017-02-27 17:51 | Discharge Summary ---
Discharge Summary Date of Service Feb 27, 2017. (Joanne Forrest M.D.) Discharge Summary Admission Date: Feb 26, 2017 at 20:54 Discharge Date: Feb 27, 2017 Discharge Disposition: Home Principal Diagnosis: new diagnosis of Diabetes Mellitus Immunizations: Have You Had Influenza Vaccine: Unknown History of Tetanus Vaccine?: Yes History of Pneumococcal: No History of Hepatitis B Vaccine: Unknown (Joanne Forrest M.D.) Medication Reconciliation New Medications: Insulin Glargine (Lantus Solostar) 100 Unit/Ml Inj 15 UNITS SC QPM for 14 Days, #1 PEN Insulin Glulisine (Apidra Solostar) 100 Units/Ml Inj 10 UNITS SQ DAILY for 30 Days, #1 Take immediately before largest meal of the day. Metformin Hcl Er (Glucophage Er) 500 Mg Tab 1 TAB PO DAILY for 30 Days, #30 TAB 1 Refill Continued Medications: Aspirin (Aspirin Ec) 325 Mg Tab 325 MG PO UD Discharge Exam Review of Systems: Constitutional: No fever, No chills, No weight loss, No fatigue Eyes: No worsening of vision, No eye pain Respiratory: No cough, No sputum, No shortness of breath Cardiovascular: No chest pain, No edema Abdomen: No pain, No vomiting, No diarrhea Genitourinary - Female: No urinary frequency, No urinary incontinence Endocrine: No excessive thirst, No excessive urination Physical Exam: General Appearance: WD/WN, no apparent distress Eyes: normal inspection, PERRL, EOMI Respiratory/Chest: lungs clear, normal breath sounds, no respiratory distress Cardiovascular: regular rate, rhythm, no edema, no JVD Extremities: normal inspection, no pedal edema Skin: normal color, warm/dry, no rash (Joanne Forrest M.D.) no further chest, abdominal pain. tolerated meal well Review of Systems: Constitutional: No fever Respiratory: No shortness of breath Cardiovascular: No chest pain Abdomen: No pain Physical Exam: General Appearance: no apparent distress Respiratory/Chest: lungs clear, no respiratory distress Cardiovascular: regular rate, rhythm Abdomen / GI: normal bowel sounds, soft, + tenderness (minimal epigastric) Neurologic/Psychiatric: alert, oriented x 3 Skin: warm/dry (Tamy Louise M.D.) Hospital Course Pt was admitted 02/26, with polyuria, polydipsia and chest pain found to be hyperglycemic. A1C 11. Cardiac enzymes nl, r/o UT. Regarding new diagnosis of type 2 DM, started her on insulin and metformin 500mg OD, to be upped to 1000mg OD in 2-4 days depending on side effects. Recieved intensive inpatient glycemic education, discharged with instructions to monitor blood sugars daily. Lipase found to be high 466 - would benefit from repeat lipase within 2 weeks. Pt has scheduled f/u with Dr. Forrest 03/01/17. Total Time Spent: Greater than 30 minutes This includes examination of the patient, discharge planning, medication reconciliation, and communication with other providers. (Joanne Forrest M.D.) Resident Physician Supervision Note: I was present with Dr. Forrest in bedside. I verified the jose history and physical, reviewed labs and image studies, discussed the case with the resident and agree with the findings and care plan. Total Time Spent: Greater than 30 minutes (Tamy Louise M.D.) Discharge Instructions Please refer to the electronic Patient Visit Report (Discharge Instructions) for additional information. - Will need repeat lipase. Was 466(H) in hospital. (Joanne Forrest M.D.)
== END 2017-02-27 17:30 | disposition home or self-care (01) | DRG 639 ==
LOC: C.EDB 17:11 → C.MS2W 20:54 → CANRESERV 21:06 → ENRESERV 21:06
PROVIDERS: ADMIT Hospitalist; ATTEND Family Medicine
DX: E11.65 Type 2 diabetes mellitus with hyperglycemia (principal); H53.9 Unspecified visual disturbance; R07.2 Precordial pain; B37.3 Candidiasis of vulva and vagina; R03.0 Elevated blood-pressure reading, without diagnosis of hypertension; Z79.82 Long term (current) use of aspirin; Z80.51 Family history of malignant neoplasm of kidney; Z82.49 Family history of ischemic heart disease and other diseases of the circulatory system; Z83.3 Family history of diabetes mellitus